=== PATIENT | male | born 1945 | race Caucasian/White ===

== ENCOUNTER → 2017-07-25 | Outpatient (CLI) | payer MEDICARE | END | disposition home or self-care (01) | LOC: RAH 10:44 | PROVIDERS: ATTEND Orthopaedic Surgery | DX: M25.561 Pain in right knee (principal); M25.562 Pain in left knee; Z96.653 Presence of artificial knee joint, bilateral | CPT/HCPCS: 73560 ==

== ENCOUNTER → 2020-07-12 | Outpatient (CLI) | payer MEDICARE | END | disposition home or self-care (01) | LOC: RAH 10:15 | PROVIDERS: ATTEND Orthopaedic Surgery | DX: M17.0 Bilateral primary osteoarthritis of knee (principal); Z96.653 Presence of artificial knee joint, bilateral | CPT/HCPCS: 73562 ==